=== PATIENT | male | born 1980 | race Asian ===

== ENCOUNTER 2018-07-13 13:32 | Emergency (ER) | payer OTHER ==
[~2018-07-13] VITALS: Ht 170.2 cm; Wt 58.1 kg
[2018-07-13] MEDS ORDERED: PEPCID20 MG PO (15:12)
[2018-07-13 15:30] VITALS: BP 102/65; TEMP 99
== END 2018-07-13 15:30 | disposition home or self-care (01) ==
LOC: ED 13:32
DX: L84 Corns and callosities (principal)
CPT/HCPCS: 99282

== ENCOUNTER 2018-11-26 11:49 | Emergency (ER) | payer BC ==
[~2018-11-26] VITALS: Ht 170.2 cm; Wt 58.1 kg
[~2018-11-26 11:49] MED LIST: PEPCID20 MG PO
[2018-11-26 12:00] VITALS: BP 104/65; TEMP 99.3
[2018-11-26 13:00] LABS: PLATELET COUNT 220 K/uL (142-355)
[2018-11-26 13:27] LABS: POTASSIUM 3.7 mmol/L (3.6-5.2)
== END 2018-11-26 15:32 | disposition other institution (70) ==
LOC: ED 11:49
PROVIDERS: Family Medicine
DX: R45.851 Suicidal ideations (principal); F32.89 Other specified depressive episodes
CPT/HCPCS: 80053; 80307; 80320; 80329; 81000; 85027; 93005; 99285